=== PATIENT | male | born 1960 | race Caucasian/White ===

== ENCOUNTER 2018-06-24 08:49 | Day surgery (SDC) | payer BC ==
[2018-06-24] MEDS: NS 1,000 ML IV ×2 (09:00)
[2018-06-24] MEDS ORDERED: PROPOFOL 200 MG/20 ML VIAL As Ordered ×6 (10:40→11:10)
[2018-06-24] MEDS ORDERED: fentaNYL 100 MCG/2 ML INJECTION (J3010) As Ordered ×2 (10:40)
[2018-06-24] MEDS ORDERED: LIDOCAINE 2% INJ 100 MG/5 ML SDV (FOR ANES.) As Ordered ×2 (10:40)
== END 2018-06-24 11:48 | disposition home or self-care (01) ==
LOC: M OPP 11:48
DX: D50.9 Iron deficiency anemia, unspecified (principal); D12.3 Benign neoplasm of transverse colon; D12.7 Benign neoplasm of rectosigmoid junction; K63.89 Other specified diseases of intestine; K57.30 Diverticulosis of large intestine without perforation or abscess without bleeding; K64.8 Other hemorrhoids; K29.70 Gastritis, unspecified, without bleeding; K44.9 Diaphragmatic hernia without obstruction or gangrene; I10 Essential (primary) hypertension; K21.9 Gastro-esophageal reflux disease without esophagitis; R12 Heartburn; J44.9 Chronic obstructive pulmonary disease, unspecified; F17.210 Nicotine dependence, cigarettes, uncomplicated; F12.10 Cannabis abuse, uncomplicated; Z79.899 Other long term (current) drug therapy
CPT/HCPCS: 45380

== ENCOUNTER 2018-09-07 16:21 | Emergency (ER) | payer BC ==
[2018-09-07] MEDS: NS 1,000 ML IV (17:49)
[2018-09-07 18:01] LABS: KETONE, URINE AUTO RFX NEGATIVE (NEGATIVE); LEUKOCYTE ESTERASE UR AUTO RFX NEGATIVE (NEGATIVE); MUCUS, URINE RFX SMALL (NEGATIVE); NITRITE, URINE AUTO RFX NEGATIVE (NEGATIVE); RBC, URINE AUTO RFX 2 /HPF (0-3); SPECIFIC GRAVITY UR AUTO RFX 1.015 (1.002-1.035); SQUAM EPITHELIAL CELL UR AURFX 0 /HPF (0-6); WBC, URINE AUTO RFX 0 /HPF (0-3)
[2018-09-07 18:05] LABS: BASO # 0.1 10^3/uL (0.0-0.2); BASO % 0.8 % (0.0-1.0); EOS # 0.2 10^3/uL (0.0-0.50); EOS % 2.1 % (0.0-3.0); HEMATOCRIT 45.3 % (42.0-52.0); HEMOGLOBIN 15.7 g/dl (13.5-17.5); IMMATURE GRANULOCYTE % 0.4 % (0-3.0); LYMPH % 31.1 % (24.0-44.0); MEAN CORPUSCULAR HEMOGLOBIN 30.3 pg (27.0-33.0); MEAN CORPUSCULAR HGB CONC 34.7 g/dl (32.0-36.5); MEAN CORPUSCULAR VOLUME 87.3 fl (80.0-96.0); MONO # 0.8 10^3/uL (0.0-0.8); NEUTROPHILS # 5.6 10^3/uL (1.8-7.7); NEUTROPHILS % 57.6 % (36.0-66.0); PLATELET COUNT, AUTOMATED 291 10^3/uL (150-450); RED BLOOD COUNT 5.19 10^6/uL (4.30-6.10); RED CELL DISTRIBUTION WIDTH 13.2 % (11.5-14.5); WHITE BLOOD COUNT 9.7 10^3/uL (4.0-10.0)
[2018-09-07] MEDS ORDERED: ISOVUE-370 76% 100ML VIAL (Q9967) As Ordered (18:05)
[2018-09-07 18:25] LABS: ALBUMIN 4.2 GM/DL (3.2-5.2); ALBUMIN/GLOBULIN RATIO 1.14 (1.00-1.93); ALKALINE PHOSPHATASE 79 U/L (45-117); ALT/SGPT 53 U/L (12-78); ANION GAP 9 MEQ/L (8-16); AST/SGOT 27 U/L (7-37); BILIRUBIN,TOTAL 0.4 MG/DL (0.2-1.0); BLOOD UREA NITROGEN 18 MG/DL (7-18); CALCIUM LEVEL 8.5 MG/DL (8.8-10.2); CARBON DIOXIDE LEVEL 26 MEQ/L (21-32); CHLORIDE LEVEL 105 MEQ/L (98-107); CREATININE FOR GFR 1.05 MG/DL (0.70-1.30); GLOMERULAR FILTRATION RATE > 60.0 (>49); GLUCOSE, FASTING 94 MG/DL (70-100); LIPASE 166 U/L (73-393); POTASSIUM SERUM 4.1 MEQ/L (3.5-5.1); SODIUM LEVEL 140 MEQ/L (136-145); TOTAL PROTEIN 7.9 GM/DL (6.4-8.2)
[2018-09-07 19:40] LABS: CHLAMYDIA DNA AMPLIFICATION NEGATIVE (NEGATIVE); GC DNA AMPLIFICATION NEGATIVE (NEGATIVE)
[2018-09-07] MEDS: CIPROFLOXACIN 500 MG TAB PO (20:05)
[2018-09-07] MEDS: metroNIDAZOLE (FLAGYL) 500 MG TAB PO (20:05)
== END 2018-09-07 20:23 | disposition home or self-care (01) ==
LOC: M ED 16:21
DX: K57.32 Diverticulitis of large intestine without perforation or abscess without bleeding (principal); N40.0 Benign prostatic hyperplasia without lower urinary tract symptoms; R36.1 Hematospermia; R10.32 Left lower quadrant pain; I10 Essential (primary) hypertension; E78.5 Hyperlipidemia, unspecified; F44.9 Dissociative and conversion disorder, unspecified; D50.9 Iron deficiency anemia, unspecified; F17.200 Nicotine dependence, unspecified, uncomplicated; Z79.899 Other long term (current) drug therapy
CPT/HCPCS: Q9967

== ENCOUNTER 2021-04-02 12:13 | Emergency (ER) | payer BC ==
[~2021-04-02] VITALS: Ht 180.3 cm; Wt 113.2 kg
[~2021-04-02 12:13] MED LIST: AMLO1TAB25 PO; BENI40TA26 PO; CIPR-249 PO; FERA1TAB PO; FERR325T18 PO; FISH7.5C PO; FLAG500T PO; GARL500C8 PO; REGL10TA6 PO; ROSU10TA6 PO; ZOFR4TAB14 SL
[2021-04-02] MEDS ORDERED: ASPIRIN 81 MG CHEW TABLET PO ONE (12:45)
--- NOTE | 2021-04-02 12:47 | REP ---
INDICATION: CHEST PAIN. COMPARISON: 05/31/2015 the latest prior also portable TECHNIQUE: Portable FINDINGS: The technique utilized in obtaining the radiograph has magnified the cardiac silhouette and accentuated the interstitial markings. The superior mediastinal structures are midline. The cardiac silhouette is unremarkable in size, shape, and position. The diaphragmatic surfaces of the lungs are regular, and the costophrenic angles are clear. The pulmonary sepulveda are clear. The imaged osseous structures are intact. There is a hiatal hernia status quo. IMPRESSION: There is no acute cardiopulmonary disease. <Electronically signed by Mike Meade > 04/02/21 [id number]
[2021-04-02 13:11] LABS: BASO # 0.1 10^3/uL (0.0-0.2); BASO % 0.7 % (0.0-1.0); EOS # 0.1 10^3/uL (0.0-0.5); EOS % 0.9 % (0.0-3.0); HEMATOCRIT 28.4 % (42.0-52.0); HEMOGLOBIN 8.5 g/dl (13.5-17.5); LYMPH # 1.7 10^3/uL (1.5-5.0); LYMPH % 16.7 % (24.0-44.0); MEAN CORPUSCULAR HEMOGLOBIN 22.9 pg (27.0-33.0); MEAN CORPUSCULAR HGB CONC 29.9 g/dl (32.0-36.5); MEAN CORPUSCULAR VOLUME 76.5 fl (80.0-96.0); MONO % 9.7 % (2.0-8.0); NEUTROPHILS # 7.1 10^3/uL (1.5-8.5); NEUTROPHILS % 71.4 % (36.0-66.0); PLATELET COUNT, AUTOMATED 390 10^3/uL (150-450); RED BLOOD COUNT 3.71 10^6/uL (4.30-6.10); WHITE BLOOD COUNT 9.9 10^3/uL (4.0-10.0)
[2021-04-02 13:36] LABS: ALT/SGPT 33 U/L (12-78); BILIRUBIN,DIRECT < 0.1 MG/DL (0.0-0.2); BILIRUBIN,TOTAL 0.3 MG/DL (0.2-1.0); BLOOD UREA NITROGEN 26 MG/DL (7-18); CALCIUM LEVEL 8.8 MG/DL (8.8-10.2); CARBON DIOXIDE LEVEL 24 MEQ/L (21-32); CHLORIDE LEVEL 105 MEQ/L (98-107); CK-MB VALUE MASS < 1.0 NG/ML (<3.6); CPK CREATINE PHOSPHOKINASE 105 U/L (39-308); CREATININE FOR GFR 1.57 MG/DL (0.70-1.30); GLOMERULAR FILTRATION RATE 47.9 (>49); GLUCOSE, FASTING 93 MG/DL (70-100); MB/CK RELATIVE INDEX 0.95 (< OR =4); POTASSIUM SERUM 4.7 MEQ/L (3.5-5.1); SODIUM LEVEL 136 MEQ/L (136-145); TOTAL PROTEIN 7.4 GM/DL (6.4-8.2); TROPONIN I < 0.02 NG/ML (< 0.10)
[2021-04-02] MEDS ORDERED: LOTR52CA PO (15:23)
[2021-04-02] MEDS ORDERED: ALBU8.5H INH (15:23)
[2021-04-02] MEDS ORDERED: HOME MED LIST COMPLETE! XX SCH (15:25)
[2021-04-02 15:49] LABS: RSV AMPLIFICATION NEGATIVE (NEGATIVE)
[2021-04-02 17:43] LABS: FERRITIN 4 NG/ML (26-388); IRON (FE) 13 UG/DL (65-175); PERCENT SATURATION 2.4 % (19.7-50.0); TOTAL IRON BINDING CAPACITY 539 UG/DL (250-450)
[2021-04-02 17:51] LABS: VITAMIN B12 LEVEL 455 PG/ML
[2021-04-02 17:52] LABS: FOLATE 16.7 NG/ML
[2021-04-02 18:30] VITALS: BP 133/78
[2021-04-02 18:53] VITALS: BP 129/82
[2021-04-02 19:38] VITALS: BP 134/66
[2021-04-02 20:15] VITALS: BP 142/78
[2021-04-02 21:15] VITALS: BP 141/76
[2021-04-02 21:35] LABS: HEMATOCRIT 30.7 % (42.0-52.0); HEMOGLOBIN 9.3 g/dl (13.5-17.5); MEAN CORPUSCULAR HEMOGLOBIN 23.4 pg (27.0-33.0); MEAN CORPUSCULAR HGB CONC 30.3 g/dl (32.0-36.5); MEAN CORPUSCULAR VOLUME 77.3 fl (80.0-96.0); PLATELET COUNT, AUTOMATED 371 10^3/uL (150-450); RED BLOOD COUNT 3.97 10^6/uL (4.30-6.10); WHITE BLOOD COUNT 8.9 10^3/uL (4.0-10.0)
--- NOTE | 2021-04-03 07:18 | ECGEPIP ---
[facility] - ED Test Date: 2021-04-02 Pat Name: JEAN-CLAUDE GAGE Department: Room: - Gender: Male Rn Clinical: MIESHA : 1960 Requested By: Gena Che Order Number: [id number] Reading MD: Sherif Luna Measurements Intervals [place] Rate: 80 P: 22 VT: 134 QRS: 21 QRSD: 98 T: 38 QT: 378 QTc: 435 Interpretive Statements Normal sinus rhythm BASELINE ARTIFACT AFFECTS INTERPRETATION Electronically Signed on 04-03-2021 7:18:12 EDT by Sherif Luna
--- NOTE | 2021-04-03 10:29 | HPE ---
HISTORY AND PHYSICAL DATE OF ADMISSION: 04/02/2021 PRIMARY CARE PHYSICIAN: Dr. Rajesh Katz ADMITTING DIAGNOSIS: Anemia with heme-positive stool. HISTORY OF PRESENT ILLNESS: Nolan Cha is a 60-year-old patient I was called from the hospitalist service to admit for symptomatic anemia. The patient is requesting an outpatient workup for this which I think is appropriate. Discussion will be summarized below. The patient has been having lightheadedness and dyspnea on exertion for several weeks. It developed gradually over several weeks to a month. He works at [employer] on the [employer] and he says walking to targeted heart rate he has to stop and he says, "I'm huffing and puffing." He gets a vague discomfort in his chest with peak exertion that goes away immediately upon taking a deep breath. He has had no epistaxis, hematuria or visible rectal bleeding but did have heme-positive stool in the Emergency Room. He has had no syncope, orthopnea, nor PND. No lower extremity edema or prolonged chest pain. He has a history of an admission 05/06/2015 for syncope. He was in the hospital for two days and it was felt to be a vasovagal episode. He is not known to be anemic. His last hemoglobin in [facility] was 15.7. That was from 08/28. He is now anemic with a microcytic index and a wide RDW. PAST MEDICAL HISTORY: 1. Hyperlipidemia. 2. Hypertensive heart disease. 3. Tobacco abuse. 4. He underwent an upper and lower endoscopy by Dr. Jay on 06/28. A small bowel biopsy did not show evidence of celiac sprue but did have nonspecific chronic inflammation and Sita gland hyperplasia. Stomach biopsy showed some H. pylori as well as chronic and focal acute gastritis. Colonoscopy showed some polyps one of which was tubular adenoma. Colon mucosa showed mild architectural disarray, increased lamina propria fibrosis but no definite inflammation, granulomas or dysplasia. 5. Fatty liver seen on CT scan of the abdomen and pelvis 08/28. REVIEW OF SYSTEMS: When he tries to walk short distances, he has to stop to catch his breath. He denies any hemoptysis, cough, wheeze, history of COPD. No elsi bleeding as noted above. The patient notes mild dysphagia. He says sometimes he has difficulty swallowing. He gets occasional heartburn and indigestion. No hematemesis. No recent change in bowel habits. MEDICATIONS: 1. Amlodipine/benazepril (Lotrel) 5-20 one daily. 2. Ferrous sulfate 325 mg daily. 3. Rosuvastatin 10 mg daily. 4. Albuterol two puffs four times daily p.r.n. (The patient says he has been on ferrous sulfate for several years after being told in the past that he was low on iron. I suspect that goes back to his 2015 admission. Therefore he is anemic and I presume iron deficient despite daily iron intake). ALLERGIES: None known. FAMILY HISTORY: Noncontributory. No GI cancers. SOCIAL HISTORY: The patient smokes a pack per day. No alcohol. He is single. PHYSICAL EXAMINATION: VITAL SIGNS: Blood pressure 121/71, pulse rate 66, respiratory rate 18, 98% O2 saturation on room air. Afebrile. GENERAL APPEARANCE: Resting comfortably, no distress. HEENT: Pupils equal, round, reactive to light. TMs and oropharynx benign. NECK: No masses. No JVD. LUNGS: Clear. HEART: Regular rate and rhythm. A 1/6 systolic ejection murmur. ABDOMEN: Soft, nontender. No masses. Stool trace heme positive. EXTREMITIES: No clubbing, cyanosis, or edema. Normal strength in the arms and legs. LABS: EKG showed no ischemia. White count __, hemoglobin 8.5, platelets 390. Sodium 136, potassium 4.7, BUN 26, creatinine 1.57. (His baseline creatinine is 1.0). Glucose 93. Troponin undetectable. COVID test negative. Chest x-ray: No active disease. IMPRESSION AND PLAN: 1. Symptomatic anemia. The patient is short of breath with exertion and has fleeting chest discomfort at peak exertion. He is not actively bleeding but considering how symptomatic he is, I recommend that he receive a unit of packed red blood cells. He is requesting an outpatient workup and does not want to be hospitalized. I think he is safe to go home after the transfusion. I called Dr. Rajesh Katz's office, left my cell phone number and asked to have a message sent to him to call me to discuss the need for outpatient workup. He probably needs at least an upper endoscopy with consideration of repeat colonoscopy. Iron studies have been ordered as well as B12 and folate. He is already taking supplemental iron which is not sufficient. Concerning for chronic ongoing GI blood loss. 2. Hypertension. Continue current regimen. 3. Hyperlipidemia. Continue current dose of rosuvastatin.
[2021-05-12] MEDS ORDERED: FLUTISP (07:11)
== END 2021-04-02 17:38 | disposition still patient (30) ==
LOC: M ED 12:13 → M ED INP 16:48 → UNDOADMOB 16:48 → ENRESERV 17:20 → M MS5PR 17:45 → M ED INP 17:45 → UNDODISOB 21:15
DX: D64.9 Anemia, unspecified (principal); R06.02 Shortness of breath; R07.9 Chest pain, unspecified; R53.1 Weakness; F17.218 Nicotine dependence, cigarettes, with other nicotine-induced disorders
CPT/HCPCS: 36415; 36430; 71045; 80048; 80076; 82550; 82553; 82607; 82728; 82746; 83550; 84484; 85025; 85027; 85046; 85379; 86850; 86900; 86901; 86920; 87631; 93005; 93041; 94760; 99285; P9016

== ENCOUNTER → 2021-04-10 | Outpatient (REF) | payer BC ==
[~2021-04-10] MED LIST changes: +ALBU8.5H INH; +LOTR52CA PO
[2021-04-10 18:04] LABS: BASO # 0.1 10^3/uL (0.0-0.2); BASO % 0.9 % (0.0-1.0); EOS # 0.3 10^3/uL (0.0-0.5); EOS % 2.6 % (0.0-3.0); HEMATOCRIT 31.5 % (42.0-52.0); HEMOGLOBIN 9.4 g/dl (13.5-17.5); LYMPH # 2.3 10^3/uL (1.5-5.0); MEAN CORPUSCULAR HEMOGLOBIN 23.5 pg (27.0-33.0); MEAN CORPUSCULAR HGB CONC 29.8 g/dl (32.0-36.5); MEAN CORPUSCULAR VOLUME 78.8 fl (80.0-96.0); MONO # 1.2 10^3/uL (0.0-0.8); MONO % 12.8 % (2.0-8.0); NEUTROPHILS # 5.6 10^3/uL (1.5-8.5); PLATELET COUNT, AUTOMATED 388 10^3/uL (150-450); WHITE BLOOD COUNT 9.6 10^3/uL (4.0-10.0)
[2021-04-10 18:33] LABS: BLOOD UREA NITROGEN 24 MG/DL (7-18); CALCIUM LEVEL 8.8 MG/DL (8.8-10.2); CARBON DIOXIDE LEVEL 25 MEQ/L (21-32); CHLORIDE LEVEL 107 MEQ/L (98-107); CREATININE FOR GFR 1.27 MG/DL (0.70-1.30); FREE T4 1.01 NG/DL (0.76-1.46); GLOMERULAR FILTRATION RATE > 60.0 (>49); GLUCOSE, FASTING 81 MG/DL (70-100); SODIUM LEVEL 140 MEQ/L (136-145)
== END ==
LOC: M SFHCADAM 14:59
PROVIDERS: ATTEND Physician Assistant
DX: D50.9 Iron deficiency anemia, unspecified (principal); N18.31 Chronic kidney disease, stage 3a

== ENCOUNTER → 2021-05-19 | Outpatient (CLI) | payer BC ==
[~2021-05-19] MED LIST changes: +FLUTISP
== END ==
LOC: M LABSMTC 10:49
PROVIDERS: ATTEND Anesthesiology
DX: Z01.812 Encounter for preprocedural laboratory examination (principal)

== ENCOUNTER 2021-05-23 10:20 | Day surgery (SDC) | payer BC ==
[~2021-05-23] VITALS: Ht 179.1 cm; Wt 110.9 kg
[~2021-05-23 10:20] MED LIST changes: +NS 1,000 ML IV ONE
[2021-05-23] MEDS ORDERED: propofoL 200 MG/20 ML VIAL As Ordered ONE (11:59)
[2021-05-23] MEDS ORDERED: LIDOCAINE 2% 100MG/5ML SDV (FOR ANES.) As Ordered ONE (11:59)
[2021-05-23] MEDS ORDERED: fentaNYL 100 MCG/2 ML INJECTION (J3010) As Ordered ONE (12:00)
--- NOTE | 2021-05-23 12:25 | ROOR ---
Patient Name: Nolan Cha Procedure Date: 05/23/2021 12:04 PM Date of : 1960 Age: 60 Room: [facility] Gender: Male Note Status: Finalized Procedure: Upper GI endoscopy Indications: Acute post hemorrhagic anemia, Follow-up of Helicobacter pylori Providers: Bj Jay MD Referring MD: Dayami Nettles DO Requesting Provider: Medicines: Monitored Anesthesia Care Complications: No immediate complications. Procedure: Pre-Anesthesia Assessment: - Prior to the procedure, a History and Physical was performed, and patient medications and allergies were reviewed. The patient is competent. The risks and benefits of the procedure and the sedation options and risks were discussed with the patient. All questions were answered and informed consent was obtained. Patient identification and proposed procedure were verified by the physician, the nurse and the anesthesiologist in the procedure room. Mental Status Examination: alert and oriented. Airway Examination: normal oropharyngeal airway and neck mobility. Respiratory Examination: clear to auscultation. CV Examination: normal. Prophylactic Antibiotics: The patient does not require prophylactic antibiotics. Prior Anticoagulants: The patient has taken no previous anticoagulant or antiplatelet agents. ASA Grade Assessment: II - A patient with mild systemic disease. After reviewing the risks and benefits, the patient was deemed in satisfactory condition to undergo the procedure. The anesthesia plan was to use monitored anesthesia care (MAC). Immediately prior to administration of medications, the patient was re-assessed for adequacy to receive sedatives. The heart rate, respiratory rate, oxygen saturations, blood pressure, adequacy of pulmonary ventilation, and response to care were monitored throughout the procedure. The physical status of the patient was re-assessed after the procedure. The Endoscope was introduced through the mouth, and advanced to the second part of duodenum. The upper GI endoscopy was accomplished without difficulty. The patient tolerated the procedure well. Findings: A large hiatal hernia was present. The Z-line was regular and was found in the distal esophagus. Patchy severe inflammation characterized by erosions, erythema, granularity, aphthous ulcerations and shallow ulcerations was found in the gastric fundus and in the gastric antrum. Biopsies were taken with a cold forceps for Helicobacter pylori testing. Verification of patient identification for the specimen was done by the physician and nurse using the patient's name, date and medical record number. Estimated blood loss was minimal. The duodenal bulb and second portion of the duodenum were normal. Biopsies for histology were taken with a cold forceps for evaluation of celiac disease. Impression: - Large hiatal hernia. - Z-line regular, in the distal esophagus. - Gastritis. Biopsied. - Normal duodenal bulb and second portion of the duodenum. Biopsied. Recommendation: - Patient has a contact number available for emergencies. The signs and symptoms of potential delayed complications were discussed with the patient. Return to normal activities tomorrow. Written discharge instructions were provided to the patient. - High fiber diet. - Continue present medications. - Await pathology results. - Use Protonix (pantoprazole) 40 mg PO twice daily - to be taken in morning (1/2 hour before breakfast) and at bedtime ( atleast 3 hours after last meal) for 3 months. - Use sucralfate suspension 1 gram PO QID for 4 weeks. - Return to primary care physician. - Return to GI clinic if persistent symptoms or new symptoms. - Follow an antireflux regimen. Procedure Code(s): --- Professional --- 96124, Esophagogastroduodenoscopy, flexible, transoral; with biopsy, single or multiple Diagnosis Code(s): --- Professional --- K44.9, Diaphragmatic hernia without obstruction or gangrene K29.70, Gastritis, unspecified, without bleeding D62, Acute posthemorrhagic anemia B96.81, Helicobacter pylori [H. pylori] as the cause of diseases classified elsewhere CPT copyright 2019 [employer]. All rights reserved. The codes documented in this report are preliminary and upon executive assistant review may be revised to meet current compliance requirements. Bj Jay MD Bj Jay MD 05/23/2021 12:24:58 PM Electronically signed by Bj Jay MD Number of Addenda: 0 Note Initiated On: 05/23/2021 12:04 PM Estimated Blood Loss: Estimated blood loss was minimal.
[2021-05-23 12:43] VITALS: BP 119/76
== END 2021-05-23 12:45 | disposition home or self-care (01) ==
LOC: M OPP 10:20
PROVIDERS: ATTEND Internal Medicine Gastroenterology
DX: K44.9 Diaphragmatic hernia without obstruction or gangrene (principal); K29.70 Gastritis, unspecified, without bleeding; D62 Acute posthemorrhagic anemia; B96.81 Helicobacter pylori [H. pylori] as the cause of diseases classified elsewhere; J44.9 Chronic obstructive pulmonary disease, unspecified; Z79.899 Other long term (current) drug therapy
CPT/HCPCS: 43239; 88305; J3010

== ENCOUNTER → 2021-06-04 | Outpatient (CLI) | payer BC ==
[~2021-06-04] MED LIST changes: -NS 1,000 ML IV ONE
--- NOTE | 2021-06-04 14:21 | REP ---
INDICATION: NICOTINE DEPENDENCE. COMPARISON: None. TECHNIQUE: Axial noncontrast images from the thoracic inlet to the upper abdomen using low-dose lung screening technique (LDCT). As per the protocol only lung window images were sent to the read station for interpretation. FINDINGS: There are no abnormal nodules, masses, or opacities. There is no evidence of a pleural or pericardial effusions. There is a large hiatal hernia. Grossly, the mediastinum and pulmonary iraj are unremarkable. Grossly, the imaged upper abdomen is otherwise unremarkable. The imaged osseous structures are grossly within normal limits. IMPRESSION: Lung rads category 1 low-dose screening CT examination of the lungs. Follow-up as per the revised Fleischner society criteria. <Electronically signed by Mike Meade > 06/04/21 [id number]
== END ==
LOC: M RAD 13:51
PROVIDERS: ATTEND Physician Assistant
DX: Z12.2 Encounter for screening for malignant neoplasm of respiratory organs (principal); F17.210 Nicotine dependence, cigarettes, uncomplicated

== ENCOUNTER → 2021-06-06 | Outpatient (REF) | payer BC ==
[2021-06-06 12:44] LABS: BASO # 0.1 10^3/uL (0.0-0.2); BASO % 1.2 % (0.0-1.0); EOS # 0.2 10^3/uL (0.0-0.5); EOS % 2.3 % (0.0-3.0); HEMATOCRIT 44.4 % (42.0-52.0); LYMPH # 1.7 10^3/uL (1.5-5.0); LYMPH % 20.2 % (24.0-44.0); MEAN CORPUSCULAR HEMOGLOBIN 27.7 pg (27.0-33.0); MEAN CORPUSCULAR HGB CONC 31.5 g/dl (32.0-36.5); MEAN CORPUSCULAR VOLUME 87.9 fl (80.0-96.0); MONO # 0.7 10^3/uL (0.0-0.8); MONO % 8.4 % (2.0-8.0); NEUTROPHILS # 5.8 10^3/uL (1.5-8.5); NEUTROPHILS % 67.6 % (36.0-66.0); PLATELET COUNT, AUTOMATED 323 10^3/uL (150-450); RED BLOOD COUNT 5.05 10^6/uL (4.30-6.10); WHITE BLOOD COUNT 8.6 10^3/uL (4.0-10.0)
[2021-06-06 13:32] LABS: ALBUMIN 4.2 GM/DL (3.2-5.2); ALT/SGPT 39 U/L (12-78); BILIRUBIN,TOTAL 0.5 MG/DL (0.2-1.0); BLOOD UREA NITROGEN 26 MG/DL (7-18); CALCIUM LEVEL 9.5 MG/DL (8.8-10.2); CARBON DIOXIDE LEVEL 28 MEQ/L (21-32); CHLORIDE LEVEL 109 MEQ/L (98-107); FERRITIN 27 NG/ML (26-388); FOLATE > 24.0 NG/ML; GLOMERULAR FILTRATION RATE 59.5 (>49); GLUCOSE, FASTING 123 MG/DL (70-100); IRON (FE) 76 UG/DL (65-175); POTASSIUM SERUM 5.5 MEQ/L (3.5-5.1); SODIUM LEVEL 143 MEQ/L (136-145); TOTAL IRON BINDING CAPACITY 447 UG/DL (250-450); TOTAL PROTEIN 7.5 GM/DL (6.4-8.2); VITAMIN B12 LEVEL 451 PG/ML
== END ==
LOC: M SFHCADAM 07:59
PROVIDERS: ATTEND Physician Assistant
DX: N18.31 Chronic kidney disease, stage 3a (principal); D50.9 Iron deficiency anemia, unspecified

== ENCOUNTER → 2021-07-11 | Outpatient (CLI) | payer BC ==
--- NOTE | 2021-07-11 09:43 | PFTRPT ---
Height: 72.00 Inches Weight: 240.00 Lbs BSA: 2.30 Diagnosis: R06.00 DATE: 07/11/2021 ORDERING PHYSICIAN: WATSON Singh Pre and post bronchodilator studies have excellent technical quality. Forced vital capacity is normal. FEV1 is in proportion. Obstructive index is therefore normal. Expiratory limit of the flow-volume loop is normal. No significant bronchodilator response is identified. Total lung capacity is normal. Residual volume is in proportion. Diffusing capacity is severely reduced but is appropriate for alveolar volume. No hemoglobin available for correction. Airway resistance and conductance are normal. IMPRESSION: Significant reduction in the diffusing capacity requires clinical correlation. MTDD
== END ==
LOC: M CARPUL 09:03
PROVIDERS: ATTEND Physician Assistant
DX: R06.00 Dyspnea, unspecified (principal); F17.210 Nicotine dependence, cigarettes, uncomplicated

== ENCOUNTER → 2021-08-22 | Outpatient (REF) | payer BC ==
[2021-08-22 14:02] LABS: HEMOGLOBIN A1c 5.7 %
[2021-08-22 14:21] LABS: BLOOD UREA NITROGEN 22 MG/DL (7-18); CALCIUM LEVEL 9.9 MG/DL (8.8-10.2); CARBON DIOXIDE LEVEL 28 MEQ/L (21-32); CHLORIDE LEVEL 106 MEQ/L (98-107); CHOLESTEROL LEVEL 226 MG/DL (<200); CHOLESTEROL RISK RATIO 5.136 (<5); CREATININE FOR GFR 1.22 MG/DL (0.70-1.30); GLOMERULAR FILTRATION RATE > 60.0 (>49); GLUCOSE, FASTING 92 MG/DL (70-100); HDL CHOLESTEROL 44 MG/DL (>40); LDL CHOLESTEROL 140 MG/DL (<100); NON-HDL-C 182 MG/DL; POTASSIUM SERUM 5.3 MEQ/L (3.5-5.1); SODIUM LEVEL 141 MEQ/L (136-145); TRIGLYCERIDES LEVEL 208 MG/DL (<150)
== END ==
LOC: M SFHCADAM 08:11
PROVIDERS: ATTEND Physician Assistant
DX: Z12.5 Encounter for screening for malignant neoplasm of prostate (principal); Z13.1 Encounter for screening for diabetes mellitus; E78.00 Pure hypercholesterolemia, unspecified; I10 Essential (primary) hypertension; E87.5 Hyperkalemia
CPT/HCPCS: 80048; 80061; 83036; G0103

== ENCOUNTER → 2021-09-30 | Outpatient (REF) | payer BC ==
[2021-10-01 10:55] LABS: APPEARANCE, URINE CLEAR (CLEAR); BACTERIA, URINE AUTO NEGATIVE (NEGATIVE); BILIRUBIN, URINE AUTO NEGATIVE (NEGATIVE); BLOOD, URINE BLOOD NEGATIVE (NEGATIVE); COLOR, URINE YELLOW (YELLOW); GLUCOSE, URINE (UA) AUTO NEGATIVE (NEGATIVE); KETONE, URINE AUTO TRACE mg/dL (NEGATIVE); LEUKOCYTE ESTERASE, URINE AUTO NEGATIVE (NEGATIVE); MUCUS, URINE SMALL (NEGATIVE); NITRITE, URINE AUTO NEGATIVE (NEGATIVE); PROTEIN, URINE AUTO NEGATIVE (NEGATIVE); RBC, URINE AUTO 0 /HPF (0-3); SQUAMOUS EPITHELIAL CELL UR AU 0 /HPF (0-6); UROBILINOGEN, URINE AUTO 0.2 mg/dL (0.0-2.0); WBC, URINE AUTO 0 /HPF (0-3)
== END ==
LOC: M SMT 10:01
PROVIDERS: ATTEND Physician Assistant
DX: R97.20 Elevated prostate specific antigen [PSA] (principal)

== ENCOUNTER → 2022-05-08 | Outpatient (REF) | payer BC ==
[~2022-05-08] MED LIST changes: +FISH10005 PO; -FISH7.5C PO
== END ==
LOC: M SMT 12:55
PROVIDERS: ATTEND Urology
DX: Z12.5 Encounter for screening for malignant neoplasm of prostate (principal); R97.20 Elevated prostate specific antigen [PSA]

== ENCOUNTER → 2024-04-28 | Outpatient (CLI) | payer BC ==
[~2024-04-28] MED LIST changes: -BENI40TA26 PO; +OLME40TA56 PO; -ROSU10TA6 PO; +ROSU10TA61 PO
== END ==
LOC: M RAD 14:34
PROVIDERS: ATTEND Internal Medicine
DX: Z12.2 Encounter for screening for malignant neoplasm of respiratory organs (principal); F17.218 Nicotine dependence, cigarettes, with other nicotine-induced disorders; I25.84 Coronary atherosclerosis due to calcified coronary lesion

== ENCOUNTER → 2025-08-15 | Outpatient (CLI) | payer BC, MEDICARE ==
[~2025-08-15] MED LIST changes: +FERR325T19 PO; +IPRA0.00; +PANT40TA29 PO; -ROSU10TA61 PO; +ROSU10TA90 PO; +ROSU20TA86 PO; +SUCR1TAB56 PO
== END ==
LOC: M RAD 13:41
PROVIDERS: ATTEND Internal Medicine
DX: J43.9 Emphysema, unspecified (principal); J98.11 Atelectasis; I25.10 Atherosclerotic heart disease of native coronary artery without angina pectoris; I25.84 Coronary atherosclerosis due to calcified coronary lesion; K44.9 Diaphragmatic hernia without obstruction or gangrene; M47.815 Spondylosis without myelopathy or radiculopathy, thoracolumbar region; K76.0 Fatty (change of) liver, not elsewhere classified; F17.218 Nicotine dependence, cigarettes, with other nicotine-induced disorders